=== PATIENT | female | born 1935 | race Two or more races ===

== ENCOUNTER 2022-08-17 16:18 | Emergency (ER) | payer OTHER ==
[~2022-08-17] VITALS: Ht 170.2 cm; Wt 64.0 kg
[2022-08-17] MEDS ORDERED: LEVETIRACETAM 500MG PREMIX 100 ML IV ONE (18:00)
[2022-08-17] MEDS ORDERED: PHENYTOIN SODIUM EXTENDED 100MG CAPSULE PO ONE (18:30)
[2022-08-17 18:44] LABS: BASOPHILS % 0.9 % (0.0-2.0); EOSINOPHILS % 0.7 % (0.0-5.0); HEMATOCRIT. 38.4 % (36.0-48.0); HEMOGLOBIN. 12.9 g/dL (12.0-16.0); LYMPHOCYTES % 22.6 % (20.0-50.0); MEAN CORPUSCULAR HEMOGLOBIN 32.1 pg (28.0-32.0); MEAN CORPUSCULAR VOLUME 95.7 fL (81.0-99.0); MEAN PLATELET VOLUME 7.5 fl (7.4-10.4); MONOCYTES % 9.1 % (2.0-8.0); NEUTROPHILS % 66.7 % (40.0-76.0); PLATELET 348 x1000/uL (130-400); RED BLOOD CELL COUNT 4.01 mill/uL (4.2-5.4); RED CELL DISTRIBUTION WIDTH 13.8 % (11.6-14.6)
[2022-08-17 18:59] LABS: CHLORIDE 104 mEq/L (98-107)
[2022-08-18 05:00] VITALS: BP 153/70
== END 2022-08-18 09:56 | disposition home or self-care (01) ==
LOC: ER 16:18 → EDBD 16:18 → ER 08-18 09:56
DX: G40.909 Epilepsy, unspecified, not intractable, without status epilepticus (principal); R89.2 Abnormal level of other drugs, medicaments and biological substances in specimens from other organs, systems and tissues; I10 Essential (primary) hypertension
CPT/HCPCS: 36415; 80053; 80185; 85025; 99284